=== PATIENT | male | born 1980 | race Caucasian/White ===

== ENCOUNTER 2020-04-14 11:13 | Emergency (ER) | payer OTHER ==
--- NOTE | 2020-04-14 11:23 | ED Physician Documentation ---
PD HPI UPPER EXT INJURY - Stated complaint Stated Complaint: RT HAND INJ - Chief complaint Chief Complaint: Trauma Ext - History obtained from History obtained from: Patient - History of Present Illness Location: Right, Hand Type of injury: Blunt / blow (The patient states his hand got crushed in a closing fence gait with pain and swelling on the dorsal mid right hand. Denies other injury. It is feeling more swollen and continues with pain on motion today) Where injury occurred: Work Timing - onset: Yesterday Timing - details: Abrupt onset, Still present Improved by: Rest, Immobilization. No: Ice Worsened by: Moving, Palpating Associated symptoms: Numbness (in ring and little fingers), Swelling. No: Weakness Similar symptoms before: Has not had sx before Recently seen: Not recently seen Review of Systems Constitutional: denies: Fever, Chills Nose: denies: Rhinorrhea / runny nose, Congestion Throat: denies: Sore throat Respiratory: denies: Cough Skin: denies: Abrasion (s), Laceration (s) PD PAST MEDICAL HISTORY - Past Medical History Past Medical History: No - Present Medications Home Medications: Ambulatory Orders Medication Instructions Recorded Confirmed HYDROcod/ACETAM 5/325 [[place] 5/325] 1 ea PO Q6H PRN #15 tablet 04/14/20 - Allergies Allergies/Adverse Reactions: Allergies Allergy/AdvReac Type Severity Reaction Status Date / Time No Known Drug Allergies Allergy Verified 04/14/20 11:19 PD ED PE NORMAL - Vitals Vital signs reviewed: Yes - General General: Alert and oriented X 3, Well developed/nourished, Other (appears uncomfortable with right hand pain only) - Derm Derm: Normal color, Warm and dry - Extremities Extremities: Other (There is a palpable deformity on the dorsal aspect of the base of the third and fourth metacarpals consistent with possible dislocation or fracture. No skin lesions.) - Neuro Neuro: Alert and oriented X 3, No motor deficit (Guarded flexion extension of the right middle ring and little fingers because of pain in the hand. He is able to flex and extend limitedly. Normal sensation for touch and pinprick in the tips of the fingers. Slight dusky coloration with mild delay in cap refill.), Normal speech Results - Vitals Vitals: Vital Signs - 24 hr 04/14/20 04/14/20 11:15 13:36 Temperature 36.4 C L 36.3 C L Heart Rate 57 L 64 Respiratory 16 17 Rate Blood Pressure 152/99 H 142/68 H O2 Saturation 100 99 Oxygen O2 Source Room air - Rads (name of study) right hand Radiology: Prelim report reviewed (dorsal dislocation base of 3rd/4th MCs at the CMC joint. No fractures. ), See rad report Procedures - Splint (location) right ulnar gutter hand Splint applied by: Tech Type of splint: Fiberglass Other: Patient tolerated well, No complications, Neurovascular intact, Good alignment, Sling provided - Reduction Body part reduced: Right, Metacarpal Fracture or dislocation: Dislocation Anesthesia: Hematoma block, Dilaudid, Other (Finger traps were used with weights on the arm to provide some traction. With that in place after a few minutes, I was able to push the proximal portion of the metacarpals back into place with a palpable reduction. He is subsequently able to move his fingers well and the color is normal then.) Reduction aftercare: NV intact, Xray confirms reduction, Splint applied, Sling PD MEDICAL DECISION MAKING - ED course Complexity details: reviewed results, considered differential, d/w patient, d/w center lead consultant (Dr. aGldamez, who came to ER to evaluate xray and talk with patient about follow up. Deferred reduction to ER staff. ) Departure - Departure Disposition: 01 Home, Self Care Clinical Impression: Crush injury of hand Qualifiers: Encounter type: initial encounter Laterality: right Qualified Code(s): S67.21XA - Crushing injury of right hand, initial encounter CMC (carpometacarpal joint) dislocation Qualifiers: Encounter type: initial encounter Laterality: right Qualified Code(s): S63.054A - Dislocation of other carpometacarpal joint of right hand, initial encounter Condition: Stable Record reviewed to determine appropriate education?: Yes Instructions: ED Fx Hand Closed Follow-Up: Nathan Galdamez MD [Provider Admit Priv/Credential] - Prescriptions: HYDROcod/ACETAM 5/325 [[place] 5/325] 1 ea PO Q6H PRN #15 tablet PRN Reason: Pain Comments: Keep the splint in place until follow-up. Elevate ice and rest your hand often to reduce swelling. Use the sling to help keep it elevated when possible. Anti-inflammatory such as ibuprofen 6 or milligrams 3 times a day. To that add Tylenol if needed for pain. Add hydrocodone if needed for worse pain if needed. Follow-up with orthopedics in about a week, call Thursday for an appointment time. They will want to jessie-ray it make sure it is maintaining position and change you into a regular cast if appropriate. Otherwise sometimes these may need pinning in place if they are not holding position well or healing correctly. Discharge Date/Time: 04/14/20 13:40
[2020-04-14] MEDS ORDERED: ACETAMINOPHEN 325 MG TABLET PO STA (11:29)
[2020-04-14] MEDS: IBUPROFEN 600 MG TABLET PO STA (11:41)
--- NOTE | 2020-04-14 11:47 | XRAY Report ---
PROCEDURE: Hand 3 View RT INDICATIONS: injury TECHNIQUE: 3 views of the hand(s) acquired. COMPARISON: None FINDINGS: Bones: There is a carpometacarpal dislocation which appears to represent the fourth carpometacarpal j oint, with dorsal dislocation of the base of the metacarpal relative to the carpal bone. No fractures identified. No suspicious bony lesions. Soft tissues: No suspicious soft tissue calcifications. IMPRESSION: There is a dislocation involving a carpometacarpal joint, likely the fourth carpometacarpal joint. Harman ggest clinical correlation. Reviewed by: Demond Sharif MD on 04/14/2020 10:46 AM [place] Approved by: Demond Sharif MD on 04/14/2020 10:46 AM [place] Station ID: [id number]
[2020-04-14] MEDS ORDERED: HYDROmorphone 2 MG/ML VIAL IM STA (12:36)
--- NOTE | 2020-04-14 13:23 | XRAY Report ---
PROCEDURE: Hand 2 View RT INDICATIONS: post reduction TECHNIQUE: 2 views of the hand(s) acquired. COMPARISON: 04/14/2020 FINDINGS: Bones: Interval reduction of carpometacarpal dislocation, likely involving the base of the fourth met acarpal. Splint material obscures bony detail. Soft tissues: No suspicious soft tissue calcifications. IMPRESSION: Successful reduction of carpometacarpal joint dislocation. Reviewed by: Demond Sharif MD on 04/14/2020 12:22 PM [place] Approved by: Demond Sharif MD on 04/14/2020 12:22 PM [place] Station ID: [id number]
[2020-04-14 13:40] VITALS: BP 142/68
== END 2020-04-14 13:40 | disposition home or self-care (01) ==
LOC: ED 11:13
DX: S63.054A Dislocation of other carpometacarpal joint of right hand, initial encounter (principal); S67.21XA Crushing injury of right hand, initial encounter; W23.0XXA Caught, crushed, jammed, or pinched between moving objects, initial encounter
CPT/HCPCS: 26670; 73120; 73130; 96372; 99283; A9270; J1170